=== PATIENT | male | born 2000 | race African-American/Black ===

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

== ENCOUNTER 2024-11-10 18:09 | Emergency (ER) | payer OTHER ==
[~2024-11-10] VITALS: Ht 177.8 cm; Wt 83.5 kg
[~2024-11-10 18:09] MED LIST: ACETAMINOPHEN650 M2; BACTRIM DS TAB1 EACH PO; TAMS0.4C PO; ULTRAM50 MG PO
[2024-11-10] MEDS ORDERED: DEXAMETHASONE SODIUM PHOSPHATE 4 MG/ML VIAL IM STA (19:09)
[2024-11-10] MEDS ORDERED: ORPHENADRINE CITRATE 30 MG/ML AMPUL IM STA (19:10)
[2024-11-10] MEDS ORDERED: KETOROLAC TROMETHAMINE 30 MG VIAL IM STA (19:11)
[2024-11-10] MEDS ORDERED: NORFLEX100MG PO (21:26)
== END 2024-11-10 21:50 | disposition home or self-care (01) ==
LOC: ER 18:11
DX: M62.838 Other muscle spasm (principal); Z88.0 Allergy status to penicillin; Z88.6 Allergy status to analgesic agent